=== PATIENT | female | born 1975 | race Caucasian/White ===

== ENCOUNTER → 2017-02-13 | Outpatient (CLI) | payer OTHER ==
[2016-09-25 14:20] VITALS: BP 149/97
[~2017-02-13] MED LIST: IOHEXOL 300 MG/ML 75 ML VIAL. IV ONE
--- NOTE | 2017-02-13 11:42 | RAD ---
Indication chronic cough. Contrast imaging through the chest was performed. Proximally 75 cc of Omnipaque [address] imaging of the chest is available. There is a small nodule seen in the periareolar position of the left breast, image 26 series 4. It measures approximately 6 mm. Mammography, if not recently performed, and targeted ultrasound should be considered. The upper abdomen is unremarkable. The thoracic aorta appears unremarkable. There is no significant hilar or mediastinal adenopathy. A dominant soft tissue mass in either lung is not seen. An acute parenchymal infiltrate is not apparent. No significant finding is seen involving the lung parenchyma. IMPRESSION: No acute or significant finding seen in the chest. Small nodule associated with the left breast. See above discussion PQRS Compliance Statement: One or more of the following individualized dose reduction techniques were utilized for this examination: 1. Automated exposure control 2. Adjustment of the mA and/or kV according to patient size 3. Use of iterative reconstruction technique
== END | disposition home or self-care (01) ==
LOC: CT 10:37
PROVIDERS: ATTEND Nurse Practitioner Family
DX: N63 Unspecified lump in breast (principal); R05 Cough; R06.00 Dyspnea, unspecified
CPT/HCPCS: 71260; Q9967

== ENCOUNTER 2017-03-12 15:49 | Emergency (ER) | payer OTHER ==
[2017-03-12] MEDS ORDERED: CEPH-263 PO (16:22)
--- NOTE | 2017-03-12 16:22 | PHYS DOC ---
Past History Past Medical History: No Pertinent History Past Surgical History: , Other Alcohol Use: None Drug Use: None Adult General Chief Complaint Chief Complaint: BREAST PAIN/INJURY HPI HPI 41-year-old female presenting to the emergency department today with pain and redness along the left lateral side of her breast. This started 2 days ago. She was seen in her primary care doctor's office who rafia a line around it and since then it is been expanding beyond the line. The rash is red. There is mild pain present. It is sharp pain nonradiating intermittent and without alleviating factors. Review of systems is negative for chest pain shortness of breath nausea vomiting abdominal pain fevers or chills. All other review of systems is negative unless otherwise noted in history of present illness. Pertinent physical exam findings show cellulitis of the left breast tissue. No abscess upon palpation. ED course: 41-year-old female presenting to the emergency department with left breast cellulitis. I prescribed the patient Keflex to follow-up with her doctor over the next 2-3 days or to return if her symptoms worsened. The patient was then discharged home in stable condition to follow up with their primary care physician over the next 2-3 days. They were to return if their symptoms worsened or if they were concerned for any reason. [id number] discharge instructions and return precautions were given. Patient's questions were answered to their satisfaction. Patient is comfortable plan. Review of Systems Review of Systems SEE ABOVE. Allergies Allergies Allergies Coded Allergies Type Severity Reaction Last Updated Verified No Known Drug Allergies 09/25/16 No Physical Exam Physical Exam Constitutional: Well developed, well nourished, no acute distress, non-toxic appearance. [] HENT: Normocephalic, atraumatic, bilateral external ears normal, oropharynx moist, no oral exudates, nose normal. [] Eyes: PERRLA, EOMI, conjunctiva normal, no discharge. [] Neck: Normal range of motion, no tenderness, supple, no stridor. [] Cardiovascular:Heart rate regular rhythm, no murmur [] Lungs & Thorax: Bilateral breath sounds clear to auscultation [] Abdomen: Bowel sounds normal, soft, no tenderness, no masses, no pulsatile masses. [] Skin: Warm, dry, no erythema, no rash. [] Back: No tenderness, no CVA tenderness. [] Extremities: No tenderness, no cyanosis, no clubbing, ROM intact, no edema. [] Neurologic: Alert and oriented X 3, normal motor function, normal sensory function, no focal deficits noted. [] Psychologic: Affect normal, judgement normal, mood normal. [] EKG EKG [] Radiology/Procedures Radiology/Procedures [] Course & Med Decision Making Course & Med Decision Making Pertinent Labs and Imaging studies reviewed. (See chart for details) [] Dragon Disclaimer Dragon Disclaimer This chart was dictated in whole or in part using Voice Recognition software in a busy, high-work load, and often noisy Emergency Department environment. It may contain unintended and wholly unrecognized errors or omissions. Departure Departure: Impression: Primary Impression: Cellulitis of breast Disposition: HOME, SELF-CARE Condition: STABLE Referrals: JUAN HASSAN MD (PCP) Patient Instructions: Cellulitis Additional Instructions: Thank you for allowing us to participate in your care today. Followup with your primary care physician in 3 days if your symptoms do not improve. If you do not have a primary care provider you can ask for a list of our primary care providers. Return to the emergency department you have any new or concerning findings. This should be evaluated by the primary care physician and any necessary consulting services for continued management within a few days after discharge. Return to emergency room if you have any new or concerning symptoms including but not limited to fever, chills, nausea, vomiting, intractable pain, any new rashes, chest pain, shortness of air, uncontrolled bleeding, difficulty breathing, and/or vision loss. Scripts Cephalexin (KEFLEX) 250 Mg Capsule 1 CAP PO QID, #28 CAP Prov: ESE MARTINEZ MD 03/12/17 ESE MARTINEZ MD March 12, 2017 16:22
[2017-03-12 16:30] VITALS: BP 176/104
== END 2017-03-12 16:30 | disposition home or self-care (01) ==
LOC: ER 15:49
DX: N61.0 Mastitis without abscess (principal)
CPT/HCPCS: 99283

== ENCOUNTER → 2017-03-19 | Outpatient (CLI) | payer OTHER ==
[2017-03-12 16:30] VITALS: BP 176/104
[~2017-03-19] MED LIST changes: +CEPH-263 PO; -IOHEXOL 300 MG/ML 75 ML VIAL. IV ONE
--- NOTE | 2017-03-19 13:59 | RAD ---
DATE: 03/19/2017 EXAM: DIGITAL DIAGNOSTIC BILATERAL, BREAST LEFT HISTORY: Left breast nodule seen on CT study COMPARISON: Baseline study This study was interpreted with the benefit of Computerized Aided Detection (CAD). The breast parenchyma shows scattered fibroglandular densities. Breast parenchyma level B FINDINGS: There are scattered fibroglandular opacities in both breasts in a mildly heterogeneous pattern. There is a 7 mm smooth nodule at the 12:00 location in the left breast which corresponds to the opacity seen on the CT study. No other focal breast nodule is seen. There is a cluster of smooth benign-appearing calcifications projected over the superior aspect of the right breast on the oblique view which may be related to skin. No suspicious microcalcifications are evident. Left breast ultrasound, 03/19/2017: A targeted ultrasound exam of the left breast was performed centered at the 12:00 location. Approximately 3 cm from the nipple there is a smooth 6 x 5 x 4 mm hypoechoic nodule. This nodule demonstrates low level internal echoes. There is no definite posterior acoustic enhancement or shadowing. No internal color flow is seen. It is slightly wider than tall. This has a benign appearance, most likely a fibroadenoma or complicated cyst. This corresponds in size and location to the mammographic abnormality. Directly lateral to this first lesion there is a smaller 5 x 5 x 2 mm nodule with similar characteristics. IMPRESSION: 1. Cluster of 2 small benign-appearing nodules at the 12:00 location in the left breast, one of which corresponds to the mammographic abnormality. Sonographic follow-up beginning in 6 months is suggested to confirm stability. 2. Routine yearly bilateral mammography is also suggested. BI-RADS CATEGORY: 3 PROBABLY BENIGN FINDING(S)-SHORT INTERVAL FOLLOW-UP SUGGESTED RECOMMENDED FOLLOW-UP: 6M 6 MONTH FOLLOW-UP PQRS compliance statement: Patient information was entered into a reminder system with a target due date for the next mammogram. Mammography is a sensitive method for finding small breast cancers, but it does not detect them all and is not a substitute for careful clinical examination. A negative mammogram does not negate a clinically suspicious finding and should not result in delay in biopsying a clinically suspicious abnormality. "Our facility is accredited by the [employer] Mammography Program."
== END | disposition home or self-care (01) ==
LOC: MAMMO 09:37
PROVIDERS: ATTEND Nurse Practitioner Family
DX: N63 Unspecified lump in breast (principal); R92.8 Other abnormal and inconclusive findings on diagnostic imaging of breast
CPT/HCPCS: 76641; G0204; 77066

== ENCOUNTER 2017-05-31 16:19 | Emergency (ER) | payer OTHER ==
[2017-05-31] MEDS ORDERED: ONDANSETRON PF 4 MG/2 ML VIAL. IV ONE (16:45)
[2017-05-31] MEDS ORDERED: IV NORMAL SALINE 1,000ML 1,000 ML IV SCH (16:45)
[2017-05-31] MEDS ORDERED: ONDA4TAB7 PO (16:49)
[2017-05-31] MEDS ORDERED: HYDR-2758 PO (16:49)
--- NOTE | 2017-05-31 16:49 | PHYS DOC ---
Past History Past Medical History: Other Past Surgical History: , Other Alcohol Use: Occasionally Drug Use: None Adult General Chief Complaint Chief Complaint: ABDOMINAL PAIN HPI HPI 41-year-old female was department today with right lower quadrant abdominal pain this started approximately 12 hours ago. The pain is sharp shooting moderate intermittent and without alleviating factors. It is associated with nausea with nonbilious nonbloody emesis. She also reports mild loose stools. She denies fevers or chills. It is not a migratory pain. She denies chest pain or shortness of breath. Review of systems is negative for fevers chills. Positive for nausea with vomiting. Negative for rash headache. All other review of systems is negative unless otherwise noted in history of present illness. ED course: 41-year-old female presenting with right lower quadrant abdominal pain. Patient is mildly tachycardic and afebrile here in the emergency room. Pertinent physical examination findings shows an equivocal McBurney's point. Negative Ashley sign. Mild tenderness of the right lower quadrant. No guarding present. Labs obtained along with CT the abdomen pelvis. Blood work shows leukocytosis. Unfortunately the patient's lab work and CT were not back prior to the patient being transferred to Dr. Day at 6 PM with plans to follow-up with CT the abdomen pelvis for evaluation of possible appendicitis. Review of Systems Review of Systems SEE ABOVE Current Medications Current Medications Current Medications Medications (Trade) Dose Ordered Sig/Shruthi Start Time Stop Time Status Last Admin Dose Admin Hydromorphone HCl (Dilaudid) 0.5 mg PRN Q15MIN PRN 05/31/17 16:30 06/01/17 16:29 Ondansetron HCl (Zofran) 4 mg 1X ONCE 05/31/17 16:45 05/31/17 16:46 Sodium Chloride 1,000 ml @ 1,000 mls/hr Q1H 05/31/17 16:45 05/31/17 17:44 Allergies Allergies Allergies Coded Allergies Type Severity Reaction Last Updated Verified No Known Drug Allergies 09/25/16 No Physical Exam Physical Exam Constitutional: Well developed, well nourished, no acute distress, non-toxic appearance. [] HENT: Normocephalic, atraumatic, bilateral external ears normal, oropharynx moist, no oral exudates, nose normal. [] Eyes: PERRLA, EOMI, conjunctiva normal, no discharge. [] Neck: Normal range of motion, no tenderness, supple, no stridor. [] Cardiovascular:Heart rate regular rhythm, no murmur [] Lungs & Thorax: Bilateral breath sounds clear to auscultation [] Abdomen: Bowel sounds normal, soft, no tenderness, no masses, no pulsatile masses. [] Skin: Warm, dry, no erythema, no rash. [] Back: No tenderness, no CVA tenderness. [] Extremities: No tenderness, no cyanosis, no clubbing, ROM intact, no edema. [] Neurologic: Alert and oriented X 3, normal motor function, normal sensory function, no focal deficits noted. [] Psychologic: Affect normal, judgement normal, mood normal. [] EKG EKG [] Radiology/Procedures Radiology/Procedures [] Course & Med Decision Making Course & Med Decision Making Pertinent Labs and Imaging studies reviewed. (See chart for details) [] Dragon Disclaimer Dragon Disclaimer This chart was dictated in whole or in part using Voice Recognition software in a busy, high-work load, and often noisy Emergency Department environment. It may contain unintended and wholly unrecognized errors or omissions. Departure Departure: Impression: Primary Impression: Abdominal pain Referrals: JUAN HASSAN MD (PCP) Patient Instructions: Abdominal Pain (Nonspecific) Scripts Ondansetron Hcl (ZOFRAN) 4 Mg Tablet 1 TAB PO PRN Q6HRS Y for NAUSEA, #6 TAB Prov: ESE MARTINEZ MD 05/31/17 Hydrocodone Bit/Acetaminophen (HYDROCODONE-APAP 5-325 ) 1 Each Tablet 1 TAB PO PRN Q6HRS Y for PAIN, #10 TAB 0 Refills Prov: ESE MARTINEZ MD 05/31/17 ESE MARTINEZ MD May 31, 2017 16:49
[2017-05-31] MEDS: HYDROmorphone PF 1 MG/ML DISP.SYRIN IV/SQ PRN ×5 (16:55→20:13)
[2017-05-31 17:05] LABS: BASO # 0.1 x10^3/uL (0.0-0.2); BASO % 0 % (0-3); EOS % 0 % (0-3); HEMATOCRIT 34.9 % (36.0-47.0); HEMOGLOBIN 11.3 g/dL (12.0-15.5); LYMPH # 1.7 x10^3/uL (1.0-4.8); LYMPH % 9 % (24-48); MEAN CORPUSCULAR HEMOGLOBIN 24 pg (25-35); MEAN CORPUSCULAR HGB CONC 32 g/dL (31-37); MEAN CORPUSCULAR VOLUME 75 fL (79-100); MONO # 0.8 x10^3/uL (0.0-1.1); MONO % 4 % (0-9); NEUT # 17.5 x10^3uL (1.8-7.7); NEUT % 87 % (31-73); PLATELET COUNT 331 x10^3/uL (140-400); RED BLOOD COUNT 4.67 x10^6/uL (3.50-5.40); RED CELL DISTRIBUTION WIDTH 17.3 % (11.5-14.5); WHITE BLOOD COUNT 20.1 x10^3/uL (4.0-11.0)
[2017-05-31 17:17] LABS: BILIRUBIN,URINE NEG (NEG); CLARITY,URINE HAZY; COLOR,URINE YELLOW; GLUCOSE,URINE NEG (NEG)
[2017-05-31 17:18] LABS: AMORPHOUS SEDIMENT,UR PRESENT /HPF; BACTERIA,URINE 0 /HPF (0-FEW); NITRITE,URINE NEG (NEG); SQUAMOUS EPITHELIAL CELL,UR OCC /LPF; UROBILINOGEN,URINE 0.2 mg/dL (0.2 mg/dL); WBC,URINE OCC /HPF (0-4)
[2017-05-31 17:19] LABS: ALBUMIN 3.4 g/dL (3.4-5.0); CALCIUM 8.3 mg/dL (8.5-10.1); DIRECT BILIRUBIN 0.2 mg/dL (0.0-0.2); GFR 61.7; POTASSIUM 3.6 mmol/L (3.5-5.1); PREG TEST PT QUAL NEGATIVE (NEG); TOTAL PROTEIN 7.7 g/dL (6.4-8.2)
[2017-05-31] MEDS ORDERED: CONTRAST GIVEN MC PRN (17:45)
[2017-05-31] MEDS ORDERED: IOHEXOL 300 MG/ML 75 ML VIAL. IV ONE (17:45)
[2017-05-31] MEDS ORDERED: IV NORMAL SALINE 1,000ML 1,000 ML IV ONE ×2 (17:45→19:45)
--- NOTE | 2017-05-31 18:14 | RAD ---
CT SCAN OF THE ABDOMEN AND PELVIS WITH IV CONTRAST. History: 12 hours right lower quadrant abdominal pain Comparison:None. Procedure: Contiguous axial images of the abdomen and pelvis were performed after the administration of 75 cc of Omnipaque 300 IV contrast and without oral contrast. CT Abdomen with contrast: Findings: Liver: Unremarkable Spleen: Unremarkable Pancreas: Unremarkable Adrenal Glands: Unremarkable Kidneys: There is a nonobstructive stone in the extrarenal pelvis There is no mass or lymphadenopathy. There is no free air. There is no free fluid. Impression: No acute findings. End Impression CT Pelvis with Contrast: Findings: The appendix is normal. The colon is collapsed. This limits its evaluation. There are multiple small cysts in the left ovary. The right ovary is not well seen and likely small. The urinary bladder appears normal. There is no free fluid. There is no lymphadenopathy. Impression: No acute findings. PQRS Compliance Statement: One or more of the following individualized dose reduction techniques were utilized for this examination: 1. Automated exposure control 2. Adjustment of the mA and/or kV according to patient size 3. Use of iterative reconstruction technique Electronically signed by: Hayder Cortez III, MD (05/31/2017 6:11 PM) [facility]
[2017-05-31] MEDS ORDERED: fentaNYL PF 100 MCG/2 ML VIAL IV PRN (18:45)
[2017-05-31] MEDS ORDERED: PIP/TAZO PER PHARMACY MC ONE (18:45)
[2017-05-31 20:00] VITALS: BP 150/89
[2017-05-31 22:27] LABS: % EOS 1 % (0-5); % LYMPHS 7 % (24-48); % MONOS 3 % (0-10); % SEGS 89 % (35-66); HYPOCHROMIA SLIGHT; OVALOCYTES OCC; PLT ESTIMATE INCREASED (ADEQUATE)
[2017-05-31 22:28] LABS: SCHISTOCYTES OCC; TOXIC GRANULATION SLIGHT
[2017-06-01] MEDS ORDERED: PIPERACILLIN/TAZOBACTAM 3.375 GM in IV NORMAL SALINE 50ML 50 ML IV SCH (19:00)
== END 2017-05-31 20:15 | disposition short-term general hospital (02) ==
LOC: ER 16:19
DX: R10.31 Right lower quadrant pain (principal); R11.2 Nausea with vomiting, unspecified; R19.7 Diarrhea, unspecified; D72.829 Elevated white blood cell count, unspecified
CPT/HCPCS: 36415; 74177; 80048; 80076; 81001; 83690; 84703; 85007; 85025; 96361; 96374; 96375; 99285; J1170; J2405; J2543; J3010; Q9967; 81025; J7030

== ENCOUNTER → 2018-07-17 | Outpatient (CLI) | payer OTHER ==
[~2018-07-17] MED LIST changes: +HYDR-2758 PO; +ONDA4TAB7 PO
--- NOTE | 2018-07-17 15:34 | RAD ---
CT of the abdomen and pelvis without contrast. 07/17/2018 1:03 PM Indication: right flank pain for 1 week Comparison Study: CT of the abdomen and pelvis with contrast May 31, 2017 Technique: Multidetector CT imaging of the abdomen pelvis is obtained without administration of contrast. Findings: The lung bases are unremarkable. The liver and gallbladder are unremarkable. Spleen is unremarkable. Adrenal glands are grossly unremarkable. Pancreas is unremarkable. Bilateral nephrolithiasis is noted. There is a stone in the inferior pole of the left kidney extending into 2 separate calyces measuring up to 1.4 cm in length. 2 smaller stones are seen in the inferior most left kidney measuring 4 mm and 2 mm respectively. The right ureter is unremarkable in course and caliber. There is a 7 mm stone in the inferior pole the right kidney and right ureter is normal in course and caliber. No evidence of acute degenerative uropathy is seen. The bladder is predominantly decompressed but otherwise unremarkable. There is been interval hysterectomy. There is a 5 cm mass in the left pelvis. This appears to represent the left ovary. This appears to be relatively low in attenuation but is not definitively cystic. Differential considerations include an complex or hemorrhagic ovarian cyst, a pelvic inclusion cyst, or a cystic ovarian neoplasm. Pelvic ultrasound could be performed for further characterization. There is no bowel obstruction. No acute inflammatory change involving the bowel is identified. The appendix is unremarkable. No significant free fluid or free air is seen in the abdomen or pelvis. Scattered small periaortic lymph nodes are noted, not pathologically enlarged by size criterion. There are small fat filled umbilical hernia noted. No acute osseous changes are seen. IMPRESSION: 1. Bilateral nephrolithiasis. No evidence of obstructive uropathy 2. 5 cm mass in the left pelvis, relatively low in attenuation, did not definitively cystic. Differential considerations include an complex or hemorrhagic ovarian cyst, a pelvic inclusion cyst, or a cystic ovarian neoplasm. Pelvic ultrasound could be performed for further characterization. CT DOSING PQRS STATEMENT: One or more of the following individualized dose reduction techniques were utilized for this examination: 1. Automated exposure control 2. Adjustment of the mA and/or kV according to patient size 3. Use of iterative reconstruction technique Electronically signed by: Mark Estrada MD (07/17/2018 3:30 PM) [id number]
== END | disposition home or self-care (01) ==
LOC: CT 12:44
PROVIDERS: ATTEND Nurse Practitioner Family
DX: N20.0 Calculus of kidney (principal); K42.9 Umbilical hernia without obstruction or gangrene; R19.09 Other intra-abdominal and pelvic swelling, mass and lump
CPT/HCPCS: 74176

== ENCOUNTER 2019-01-01 10:24 | Emergency (ER) | payer OTHER ==
[~2019-01-01] VITALS: Ht 165.1 cm; Wt 106.7 kg
[~2019-01-01 10:24] MED LIST changes: +HYDR-2155 PO; -HYDR-2758 PO
[2019-01-01 10:33] VITALS: BP 157/99
[2019-01-01 10:55] LABS: BASO # 0.1 x10^3/uL (0.0-0.2); BASO % 1 % (0-3); EOS # 0.2 x10^3/uL (0.0-0.7); EOS % 2 % (0-3); HEMATOCRIT 43.1 % (36.0-47.0); HEMOGLOBIN 14.3 g/dL (12.0-15.5); LYMPH # 1.6 x10^3/uL (1.0-4.8); LYMPH % 15 % (24-48); MEAN CORPUSCULAR HEMOGLOBIN 27 pg (25-35); MEAN CORPUSCULAR HGB CONC 33 g/dL (31-37); MEAN CORPUSCULAR VOLUME 82 fL (79-100); MONO % 10 % (0-9); NEUT # 7.5 x10^3uL (1.8-7.7); NEUT % 72 % (31-73); PLATELET COUNT 350 x10^3/uL (140-400); RED BLOOD COUNT 5.24 x10^6/uL (3.50-5.40); RED CELL DISTRIBUTION WIDTH 14.3 % (11.5-14.5); WHITE BLOOD COUNT 10.3 x10^3/uL (4.0-11.0)
[2019-01-01 11:05] LABS: ALBUMIN/GLOBULIN RATIO 1.1 (1.0-1.7); CALCIUM 9.9 mg/dL (8.5-10.1); CREATININE 0.9 mg/dL (0.6-1.0); POTASSIUM 3.9 mmol/L (3.5-5.1); TOTAL BILIRUBIN 0.5 mg/dL (0.2-1.0); TOTAL PROTEIN 7.8 g/dL (6.4-8.2)
--- NOTE | 2019-01-01 11:07 | RAD ---
EXAM: CHEST 1 VIEW History: Chest pain COMPARISON: 09/25/2016 TECHNIQUE: Single portable radiograph of the chest FINDINGS: The cardiac silhouette is unremarkable. The lungs are clear bilaterally. The costophrenic sulci are clear and well demarcated. IMPRESSION: No radiographic evidence of an acute cardiopulmonary process. Electronically signed by: Jorge Rasmussen MD (01/01/2019 11:04 AM) [id number]
[2019-01-01] MEDS ORDERED: IV NORMAL SALINE 1,000ML 1,000 ML IV ONE (11:15)
--- NOTE | 2019-01-01 11:15 | PHYS DOC ---
Past History Past Medical History: No Pertinent History Past Surgical History: Other Alcohol Use: None Drug Use: None Adult General Chief Complaint Chief Complaint: CHEST WALL PAIN HPI HPI 23-year-old female presents with chest pain. She was sent here by her PCP. She went in to her PCPs office with headache and elevated blood pressure couple of days ago. She took the medications that they prescribed for her. She woke up this morning with a central chest heaviness at 6 AM. She rates as a 6 out of 10. She has not had this before. Her headache has also come back and is a global pressure sensation. Patient has decreased voice and feels overall fatigued. With her chest pain, she had shortness of breath and diaphoresis. She has no history of heart problems. She does have a family history of heart problems though not younger than 50. She denies fever or chills. Review of Systems Review of Systems Constitutional: Denies fever or chills [] Eyes: Denies change in visual acuity, redness, or eye pain [] HENT: Denies nasal congestion or sore throat [] Respiratory: shortness of breath [] Cardiovascular: No additional information not addressed in HPI [] GI: Denies abdominal pain, nausea, vomiting, bloody stools or diarrhea [] : Denies dysuria or hematuria [] Musculoskeletal: Denies back pain or joint pain [] Integument: Denies rash or skin lesions [] Neurologic: Headache. Denies focal weakness or sensory changes [] Endocrine: Denies polyuria or polydipsia [] All other systems were reviewed and found to be within normal limits, except as documented in this note. Current Medications Current Medications Current Medications Medications (Trade) Dose Ordered Sig/Shruthi Start Time Stop Time Status Last Admin Dose Admin Aspirin (Children'S Aspirin) 324 mg 1X ONCE 01/01/19 11:15 01/01/19 11:16 UNV Diphenhydramine HCl (Benadryl) 25 mg 1X ONCE 01/01/19 11:15 01/01/19 11:16 UNV Metoclopramide HCl (Reglan Vial) 10 mg 1X ONCE 01/01/19 11:15 01/01/19 11:16 UNV Sodium Chloride 1,000 ml @ 1,000 mls/hr 1X ONCE 01/01/19 11:15 01/01/19 12:14 UNV Allergies Allergies Allergies Coded Allergies Type Severity Reaction Last Updated Verified No Known Drug Allergies 09/25/16 No Physical Exam Physical Exam Constitutional: Well developed, obese, well nourished, no acute distress, non- toxic appearance. [] HENT: Normocephalic, atraumatic, bilateral external ears normal, oropharynx moist, no oral exudates, nose normal. [] Eyes: PERRLA, EOMI, conjunctiva normal, no discharge. [] Neck: Normal range of motion, no tenderness, supple, no stridor. [] Cardiovascular:Heart rate regular rhythm, no murmur [] Lungs & Thorax: Bilateral breath sounds clear to auscultation [] Abdomen: Bowel sounds normal, soft, no tenderness, no masses, no pulsatile masses. [] Skin: Warm, dry, no erythema, no rash. [] Back: No tenderness, no CVA tenderness. [] Extremities: No tenderness, no cyanosis, no clubbing, ROM intact, no edema. [] Neurologic: Alert and oriented X 3, normal motor function, normal sensory function, no focal deficits noted. [] Psychologic: Affect normal, judgement normal, mood normal. [] Current Patient Data Vital Signs Vital Signs Date Time Temp Pulse Resp B/P (MAP) Pulse Ox O2 Delivery O2 Flow Rate FiO2 01/01/19 10:33 98.3 96 18 95 Room Air Lab Results Laboratory Tests Test 01/01/19 10:36 White Blood Count 10.3 x10^3/uL (4.0-11.0) Red Blood Count 5.24 x10^6/uL (3.50-5.40) Hemoglobin 14.3 g/dL (12.0-15.5) Hematocrit 43.1 % (36.0-47.0) Mean Corpuscular Volume 82 fL (79-100) Mean Corpuscular Hemoglobin 27 pg (25-35) Mean Corpuscular Hemoglobin Concent 33 g/dL (31-37) Red Cell Distribution Width 14.3 % (11.5-14.5) Platelet Count 350 x10^3/uL (140-400) Neutrophils (%) (Auto) 72 % (31-73) Lymphocytes (%) (Auto) 15 % (24-48) L Monocytes (%) (Auto) 10 % (0-9) H Eosinophils (%) (Auto) 2 % (0-3) Basophils (%) (Auto) 1 % (0-3) Neutrophils # (Auto) 7.5 x10^3uL (1.8-7.7) Lymphocytes # (Auto) 1.6 x10^3/uL (1.0-4.8) Monocytes # (Auto) 1.0 x10^3/uL (0.0-1.1) Eosinophils # (Auto) 0.2 x10^3/uL (0.0-0.7) Basophils # (Auto) 0.1 x10^3/uL (0.0-0.2) Sodium Level 140 mmol/L (136-145) Potassium Level 3.9 mmol/L (3.5-5.1) Chloride Level 98 mmol/L (98-107) Carbon Dioxide Level 32 mmol/L (21-32) Anion Gap 10 (6-14) Blood Urea Nitrogen 14 mg/dL (7-20) Creatinine 0.9 mg/dL (0.6-1.0) Estimated GFR (Cockcroft-Gault) 69.0 BUN/Creatinine Ratio 16 (6-20) Glucose Level 73 mg/dL (70-99) Calcium Level 9.9 mg/dL (8.5-10.1) Total Bilirubin 0.5 mg/dL (0.2-1.0) Aspartate Amino Transferase (AST) 14 U/L (15-37) L Alanine Aminotransferase (ALT) 26 U/L (14-59) Alkaline Phosphatase 85 U/L (46-116) Troponin I Quantitative 0.018 ng/mL (0-0.055) Total Protein 7.8 g/dL (6.4-8.2) Albumin 4.0 g/dL (3.4-5.0) Albumin/Globulin Ratio 1.1 (1.0-1.7) EKG EKG [] Radiology/Procedures Radiology/Procedures [] Course & Med Decision Making Course & Med Decision Making Pertinent Labs and Imaging studies reviewed. (See chart for details) The patient's troponin is 0.018. This is below her labs cut off. The rest for labs are normal. She was given 324 aspirin on arrival. Her EKG is unremarkable. For her headache, was given 10 mg Reglan IV, 25 mg of Benadryl IV, and 1 L of normal saline. Her headache is improved at this time. The patient's HEART score is 2. I criteria, the patient can go home. I discussed admission for further testing versus going home and the patient has elected to go home. She is stable for discharge at this time. [] Dragon Disclaimer Dragon Disclaimer This electronic medical record was generated, in whole or in part, using a voice recognition dictation system. Departure Departure: Impression: Primary Impression: Chest pain Additional Impressions: Hypertension Headache Disposition: HOME, SELF-CARE Condition: STABLE Referrals: JUAN HASSAN MD (PCP) Patient Instructions: Chest Pain (Nonspecific), [id number], General Headache Without Cause, [id number], Hypertension, [id number] Problem Qualifiers Primary Impression: Chest pain Chest pain type: precordial pain Qualified Codes: R07.2 - Precordial pain Additional Impressions: Hypertension Hypertension type: essential hypertension Qualified Codes: I10 - Essential ( primary) hypertension Headache Headache type: other vascular headache Qualified Codes: G44.1 - Vascular headache, not elsewhere classified ISAC PARKS DO Jan 01, 2019 11:15
[2019-01-01] MEDS ORDERED: METOCLOPRAMIDE HCL 10 MG/2 ML VIAL. IV ONE (11:45)
[2019-01-01] MEDS ORDERED: ASPIRIN 81 MG TAB.CHEW PO ONE (11:45)
[2019-01-01] MEDS ORDERED: diphenhydrAMINE 50 MG/ML VIAL IVP ONE (11:45)
--- NOTE | 2019-01-02 05:10 | EKG ---
[address] [address] Test Date: 2019-01-01 Test Time: 10:47:30 Pat Name: JANEL HINTON Department: Room: Gender: F Store Administrative Assistant: : 1975 Requested By: ISAC PARKS Order Number: [id number] Reading MD: Jean Pierre Le MD Measurements Intervals [place] Rate: 93 P: 42 GA: 138 QRS: 0 QRSD: 88 T: 61 QT: 344 QTc: 430 Interpretive Statements SINUS RHYTHM Electronically Signed On 01-04-2019 10:06:00 CDT by Jean Pierre Le MD
== END 2019-01-01 12:16 | disposition home or self-care (01) ==
LOC: ER 10:24
DX: R07.2 Precordial pain (principal); I10 Essential (primary) hypertension; G44.1 Vascular headache, not elsewhere classified
CPT/HCPCS: 36415; 71045; 80053; 84484; 85025; 93005; 96374; 96375; 99284; J1200; J2765; J7030